=== PATIENT | female | born 1940 | race Caucasian/White ===

== ENCOUNTER → 2016-10-24 | Outpatient (CLI) | payer OTHER, MEDICARE ==
[2013-08-17 13:53] VITALS: BP 145/67
--- NOTE | 2016-10-27 11:54 | MRI ---
HISTORY: Compression fracture, severe low back pain Study: MRI lumbar spine without contrast Comparison: None Technique: Multiplanar multi-sequence MRI of the lumbar spine was obtained. Sagittal T1, sagittal T 2, and stir weighted images, axial T1, and axial T2 images were obtained. Findings: There is a central compression of L1 with signal characteristics suggesting that it is recent. There is slight retrolisthesis L2 on L3 and slight anterolisthesis L3 on L4. The conus of the cord term inates normally. T12 -- L1: Broad-based disk bulging is not significantly compressive. The neural foramina are patent . The joints are normal. L1 -- L2: Concentric disk bulging contributes to lateral recess narrowing bilaterally. The joints ar e normal. L2 -- L3: There is slight retrolisthesis L2 on L3 secondary to severe degenerative disc disease. Ret rolisthesis contributes along with pedicular shortening and bilateral facet arthropathy to lateral r ecess and foraminal narrowing bilaterally left worse than right. L3 -- L4: There is minimal anterolisthesis L3 on L4. Broad-based disc bulging contributes along with bilateral facet arthropathy pedicular shortening and the anterolisthesis to a relatively severe spi nal stenosis with marked lateral recess and foraminal narrowing left worse than right. L4 -- L5: There is disc degeneration with broad-based disc bulging which contributes along with joseph re ligamentous hypertrophy and bilateral facet arthropathy to a severe spinal stenosis with marked l ateral recess and foraminal narrowing bilaterally. L5 -- S1: Broad-based disc protrusion effaces the thecal sac and contributes along with spondylitic change and bilateral facet arthropathy to lateral recess and foraminal narrowing bilaterally worse o n the right than the left. IMPRESSION: As above Reported By:
== END ==
LOC: RAD 14:53
PROVIDERS: ATTEND Specialist
DX: S32.010S Wedge compression fracture of first lumbar vertebra, sequela (principal); X58.XXXS Exposure to other specified factors, sequela
CPT/HCPCS: 72148